=== PATIENT | male | born 1975 | race Caucasian/White ===

== ENCOUNTER 2018-11-28 16:02 | Emergency (ER) | payer OTHER ==
[~2018-11-28] VITALS: Ht 182.9 cm; Wt 99.8 kg
[2018-11-28 16:03] VITALS: BP_SYST 145
--- NOTE | 2018-11-28 16:09 | NUR ---
Patient to ER bed 3 to gown for evaluation. Side rails up. Report given to Miguelangel RIOS.
--- NOTE | 2018-11-28 16:12 | NUR ---
Patient is awake, alert, and oriented x4. Patient reports having stabbing pain when touching different parts of his body for 1 month with tingling sensation in both of his hands. Today he was walking on the treadmill and felt chest pressure radiating down his right arm with shortness of breath. Currently patient is only complaining of pressure headache /.
--- NOTE | 2018-11-28 16:30 | NUR ---
ER Dr. Paredes at bedside examining patient.
[2018-11-28] MEDS ORDERED: ASPIRIN 81 MG TAB.CHEW PO ONE (16:45)
[2018-11-28] MEDS ORDERED: NITROGLYCERIN 1 INCH (GM) OINT. TD ONE (16:45)
--- NOTE | 2018-11-28 16:55 | NUR ---
RN has placed 20g into the Right AC in one attempt .
[2018-11-28 17:07] LABS: CALCIUM 8.9 mg/dL (8.4-11.0); CREATININE 0.94 mg/dL (0.55-1.30); POTASSIUM 3.7 mmol/L (3.5-5.1)
[2018-11-28 17:08] LABS: HEMATOCRIT 44.7 % (36-54); HEMOGLOBIN 15.2 g/dL (14.0-18.0); MEAN CORPUSCULAR VOLUME 94 fL (79.0-98.0); RED BLOOD CELL COUNT(AUTO) 4.77 MIL/uL (4.2-6.2); WHITE BLOOD COUNT (AUTO) 4.8 K/uL (4.8-10.8)
[2018-11-28 17:09] LABS: BASOPHILS % (AUTO) 0.7 % (0.0-2.0); EOSINOPHILS # (AUTO) 0.1 K/uL (0.0-0.4); EOSINOPHILS % (AUTO) 2.7 % (0.0-4.0); LYMPHOCYTES # (AUTO) 1.7 K/uL (1.0-5.5); LYMPHOCYTES % (AUTO) 34.4 % (20.5-51.5); MEAN CORPUSCULAR HEMOGLOBIN 32 pg (27-31); MEAN CORPUSCULAR HGB CONC 34 % (32-36); MONOCYTES # (AUTO) 0.6 K/uL (0.0-1.0); MONOCYTES % (AUTO) 11.7 % (1.7-9.3); NEUTROPHILS # (AUTO) 2.4 K/uL (1.8-7.7); NEUTROPHILS % (AUTO) 50.5 % (40.0-70.0); PLATELET COUNT (AUTO) 158 K/uL (130-430); RED CELL DISTRIBUTION WIDTH 13.4 % (9.0-15.0)
[2018-11-28 17:13] LABS: ALBUMIN 3.9 g/dL (3.4-4.8); TOTAL BILIRUBIN 1.3 mg/dL (0.0-1.0)
--- NOTE | 2018-11-28 17:29 | NUR ---
o2 via nc as ordered . noted and carried out.
--- NOTE | 2018-11-28 17:46 | NUR ---
has reviewed all the labs, and pt can go home. RN has removed the IV 20g catheter , intact and placed bandaid over site. pt is being prepared for dc home.
[2018-11-28 17:56] VITALS: BP_SYST 125
== END 2018-11-28 17:56 | disposition home or self-care (01) ==
LOC: SED 16:02
DX: R07.89 Other chest pain (principal)
CPT/HCPCS: 36415; 71045; 80053; 82550-TC; 84484; 85025; 93005; 99284